=== PATIENT | male | born 1930 | race Caucasian/White ===

== ENCOUNTER 2020-04-28 11:00 | Inpatient (IN) | payer OTHER ==
[~2020-04-28] VITALS: Ht 180.3 cm; Wt 105.1 kg
[2020-04-28 11:30] LABS: BASOPHILS % (AUTO) 0.2 % (0.0-5.0); EOSINOPHILS % (AUTO) 0.3 % (0.0-8.0); HEMATOCRIT 37.8 % (42-54); LYMPHOCYTES % (AUTO) 4.4 % (21.0-51.0); MEAN CORPUSCULAR HEMOGLOBIN 30.9 pg (27.0-33.0); MEAN CORPUSCULAR HGB CONC 33.1 g/dL (32.0-36.0); MEAN CORPUSCULAR VOLUME 93.3 fL (79-99); MONOCYTES % (AUTO) 9.3 % (3.0-13.0); NEUTROPHILS % (AUTO) 85.3 % (40.0-77.0); PLATELET COUNT (AUTO) 123 K/uL (130-400); RED BLOOD CELL COUNT(AUTO) 4.05 MIL/uL (4.50-6.20); RED CELL DISTRIBUTION WIDTH 13.6 % (11.0-15.5); WHITE BLOOD COUNT (AUTO) 15.4 K/uL (4.8-10.8)
[2020-04-28 11:56] LABS: INR 1.26 (0.85-1.15); PROTHROMBIN TIME 13.3 SEC (9.6-11.6)
[2020-04-28 11:57] LABS: PARTIAL THROMBOPLASTIN TIME 33.8 SEC (26.3-35.5)
[2020-04-28 11:59] LABS: ALBUMIN 2.7 g/dL (3.5-5.0); BILIRUBIN,TOTAL 1.5 mg/dL (0.2-1.0); CREATININE 1.3 mg/dL (0.5-1.5); POTASSIUM 3.8 mmol/L (3.5-5.1); TOTAL PROTEIN, SERUM 6.3 g/dL (6.0-8.3); TROPONIN I 0.07 ng/mL (0.00-0.06)
[2020-04-28] MEDS ORDERED: LEVOFLOXACIN 500 MG/D5W 100 ML 100 ML ONE (12:34)
[2020-04-28] MEDS ORDERED: SODIUM CHLORIDE 0.9% 1000ML 1,000 ML IV ONE (12:34)
[2020-04-28] MEDS ORDERED: ACETAMINOPHEN 325 MG TAB ONE ×2 (12:34→12:38)
[2020-04-28] MEDS ORDERED: IOHEXOL-350 75 ML VIAL IV ONE (13:40)
[2020-04-28 13:50] LABS: APPEARANCE,URINE Cloudy (CLEAR); BILIRUBIN,URINE Small (NEGATIVE); COLOR,URINE Dark Yellow (YELLOW); GLUCOSE, URINE (UA) Negative (NEGATIVE); KETONES,URINE Trace mg/dL (NEGATIVE); LEUKOCYTE ESTERASE ,URINE Trace (NEGATIVE); NITRATE,URINE Negative (NEGATIVE); OCCULT BLOOD,URINE Small (NEGATIVE); PROTEIN,URINE POS 2+ mg/dL (NEGATIVE)
[2020-04-28 14:18] LABS: BACTERIA,URINE Rare /HPF (None Seen); RBC,URINE 0-1 /HPF (0-1); SQUAMOUS EPITHELIAL CELL,UR Rare /HPF (0-2); WBC,URINE 0-1 /HPF (0-1)
[2020-04-28] MEDS ORDERED: LACTULOSE 20 GM/30 ML UDCUP PO PRN (16:30)
[2020-04-28] MEDS ORDERED: ONDANSETRON HCL 4 MG/2 ML VIAL IV PRN (16:30)
[2020-04-28] MEDS ORDERED: MAG HYDROX/AL HYDROX/SIMETH ES 30 ML SUSP UDCUP PO PRN (16:30)
[2020-04-28] MEDS ORDERED: ACETAMINOPHEN-CODEINE 300/30MG TAB PO PRN ×2 (16:30)
[2020-04-28] MEDS: LACTATED RINGERS 1000ML 1,000 ML IV SCH (16:30)
[2020-04-28] MEDS ORDERED: ZOSYN 3.375GM+NS 50ML 50 ML IV SCH (16:45)
[2020-04-28] MEDS: SODIUM CHLORIDE 0.9% 1000ML 1,000 ML IV SCH (16:45)
[2020-04-28] MEDS ORDERED: PHARMACY COMMUNICATION MISC SCH (17:30)
[2020-04-28] MEDS ORDERED: VANCOMYCIN PROTOCOL PER PHARMACY IV SCH (17:45)
[2020-04-28] MEDS: ALBUTEROL SULFATE 0.083% 2.5 MG/3 ML INH IH SCH (18:15)
[2020-04-28] MEDS ORDERED: VANCOMYCIN 1.5 GM in SODIUM CHLORIDE 0.9% 250 ML IV ONE (18:30)
[2020-04-28] MEDS ORDERED: LEVOFLOXACIN 500 MG/D5W 100 ML 100 ML IV SCH (21:00)
[2020-04-28] MEDS: METRONIDAZOLE 500MG/100ML BAG 100 ML IVPB SCH (22:00)
[2020-04-28 23:00] VITALS: BP 124/68
[2020-04-29] MEDS: ALBUTEROL SULFATE 0.083% 2.5 MG/3 ML INH IH SCH (02:15)
[2020-04-29 03:00] VITALS: BP 135/75
[2020-04-29] MEDS: METRONIDAZOLE 500MG/100ML BAG 100 ML IVPB SCH ×3 (05:28→21:53)
[2020-04-29] MEDS: LACTATED RINGERS 1000ML 1,000 ML IV SCH ×3 (05:28→21:56)
[2020-04-29 05:36] LABS: BASOPHILS % (AUTO) 0.2 % (0.0-5.0); EOSINOPHILS % (AUTO) 0.2 % (0.0-8.0); HEMATOCRIT 36.9 % (42-54); LYMPHOCYTES % (AUTO) 5.1 % (21.0-51.0); MEAN CORPUSCULAR HGB CONC 32.8 g/dL (32.0-36.0); MEAN CORPUSCULAR VOLUME 94.6 fL (79-99); MONOCYTES % (AUTO) 11.3 % (3.0-13.0); NEUTROPHILS % (AUTO) 82.4 % (40.0-77.0); PLATELET COUNT (AUTO) 123 K/uL (130-400); RED CELL DISTRIBUTION WIDTH 13.7 % (11.0-15.5); WHITE BLOOD COUNT (AUTO) 11.9 K/uL (4.8-10.8)
[2020-04-29] MEDS: SODIUM CHLORIDE 0.9% 1000ML 1,000 ML IV SCH (06:05)
[2020-04-29 06:22] LABS: CREATININE 1.2 mg/dL (0.5-1.5); POTASSIUM 3.7 mmol/L (3.5-5.1)
[2020-04-29] MEDS: ALBUTEROL INHALER 90MCG/INH IH SCH ×3 (06:58→18:26)
[2020-04-29] MEDS: VANCOMYCIN 500MG+NS 100ML 100 ML IV SCH ×2 (07:00→18:28)
[2020-04-29 08:00] VITALS: BP 114/78
[2020-04-29] MEDS ORDERED: ENOXAPARIN SODIUM 30 MG/0.3 ML SQ SCH (09:00)
[2020-04-29] MEDS: LOSARTAN 50 MG TABLET PO SCH (09:23)
[2020-04-29] MEDS: DILTIAZEM HCL 120 MG CAP.SR.24H PO SCH (09:24)
[2020-04-29] MEDS ORDERED: APIX5TAB PO (10:34)
[2020-04-29] MEDS ORDERED: ATOR40TA71 PO (10:35)
[2020-04-29] MEDS ORDERED: DIGO0.12 PO (10:36)
[2020-04-29] MEDS ORDERED: VALS40TA11 PO (10:36)
[2020-04-29] MEDS ORDERED: GUAI200T5 PO (10:38)
[2020-04-29] MEDS ORDERED: BUPR100T13 PO (10:40)
[2020-04-29] MEDS ORDERED: DILT-19 PO (10:41)
[2020-04-29] MEDS ORDERED: MAGN250T39 PO (10:47)
[2020-04-29 11:24] VITALS: BP 122/65
[2020-04-29] MEDS ORDERED: TIOT18CA3 IH (12:34)
[2020-04-29] MEDS ORDERED: BUDE10.2 IH (12:35)
[2020-04-29] MEDS ORDERED: IOHEXOL-350 75 ML VIAL IV ONE (15:15)
[2020-04-29 16:00] VITALS: BP 109/55
[2020-04-29] MEDS ORDERED: MORPHINE SULFATE 4 MG/1ML SYG IV PRN (19:45)
[2020-04-29] MEDS ORDERED: MORPHINE SULFATE 2 MG/ML 1ML SYG IVP PRN (19:45)
[2020-04-29 20:12] VITALS: BP 128/92
[2020-04-29] MEDS: LEVOFLOXACIN 250 MG/D5W 50ML 50 ML IVPB SCH (21:53)
[2020-04-29] MEDS: APIXABAN 5 MG TABLET PO SCH (21:53)
[2020-04-30] VITALS (7 sets, daily range): BP systolic 112–155; BP diastolic 57–86
[2020-04-30] MEDS: METRONIDAZOLE 500MG/100ML BAG 100 ML IVPB SCH ×3 (05:55→23:55)
[2020-04-30] MEDS: VANCOMYCIN 500MG+NS 100ML 100 ML IV SCH (05:56)
[2020-04-30] MEDS ORDERED: VANCOMYCIN 1GM+NS 250ML 250 ML IV SCH (08:00)
[2020-04-30] MEDS ORDERED: COMPOUND IV REFRIGERATED 1 EACH IVSOLN MISC PRN (08:00)
[2020-04-30] MEDS: LACTATED RINGERS 1000ML 1,000 ML IV SCH ×2 (08:30→23:56)
[2020-04-30] MEDS: LOSARTAN 50 MG TABLET PO SCH (08:46)
[2020-04-30] MEDS: DILTIAZEM HCL 120 MG CAP.SR.24H PO SCH (08:46)
[2020-04-30] MEDS: APIXABAN 5 MG TABLET PO SCH (08:47)
[2020-04-30] MEDS ORDERED: VANCOMYCIN 500MG+NS 100ML 100 ML IV SCH (12:00)
[2020-04-30 12:53] LABS: BASOPHILS % (AUTO) 0.2 % (0.0-5.0); EOSINOPHILS % (AUTO) 0.3 % (0.0-8.0); HEMATOCRIT 37.7 % (42-54); LYMPHOCYTES % (AUTO) 4.2 % (21.0-51.0); MEAN CORPUSCULAR HEMOGLOBIN 31.6 pg (27.0-33.0); MEAN CORPUSCULAR HGB CONC 32.9 g/dL (32.0-36.0); MEAN CORPUSCULAR VOLUME 95.9 fL (79-99); NEUTROPHILS % (AUTO) 84.7 % (40.0-77.0); PLATELET COUNT (AUTO) 148 K/uL (130-400); RED BLOOD CELL COUNT(AUTO) 3.93 MIL/uL (4.50-6.20); WHITE BLOOD COUNT (AUTO) 13.5 K/uL (4.8-10.8)
[2020-04-30 13:03] LABS: CREATININE 1.2 mg/dL (0.5-1.5); POTASSIUM 3.6 mmol/L (3.5-5.1)
[2020-04-30] MEDS ORDERED: VANCOMYCIN 750MG + NS 250 ML IV SCH ×2 (21:00)
[2020-05-01] MEDS: ALBUTEROL INHALER 90MCG/INH IH SCH (00:27)
[2020-05-01] MEDS: LEVOFLOXACIN 250 MG/D5W 50ML 50 ML IVPB SCH (02:45)
[2020-05-01] MEDS: APIXABAN 5 MG TABLET PO SCH ×3 (02:49→21:43)
[2020-05-01] MEDS: GUAIFENESIN-DM 200/20 MG 10 ML PO PRN ×2 (02:49→11:18)
[2020-05-01 03:13] VITALS: BP 119/61
[2020-05-01] MEDS ORDERED: PHARMACY COMMUNICATION MISC SCH (05:00)
[2020-05-01 05:25] LABS: BASOPHILS % (AUTO) 0.4 % (0.0-5.0); EOSINOPHILS % (AUTO) 0.3 % (0.0-8.0); HEMATOCRIT 35.8 % (42-54); MEAN CORPUSCULAR HEMOGLOBIN 30.5 pg (27.0-33.0); MEAN CORPUSCULAR HGB CONC 33.2 g/dL (32.0-36.0); MEAN CORPUSCULAR VOLUME 91.8 fL (79-99); MONOCYTES % (AUTO) 10.2 % (3.0-13.0); NEUTROPHILS % (AUTO) 83.4 % (40.0-77.0); PLATELET COUNT (AUTO) 148 K/uL (130-400); RED CELL DISTRIBUTION WIDTH 13.8 % (11.0-15.5); WHITE BLOOD COUNT (AUTO) 12.5 K/uL (4.8-10.8)
[2020-05-01 05:46] LABS: CREATININE 1.1 mg/dL (0.5-1.5); POTASSIUM 3.4 mmol/L (3.5-5.1)
[2020-05-01 08:00] VITALS: BP 116/54
[2020-05-01] MEDS: LOSARTAN 50 MG TABLET PO SCH (09:55)
[2020-05-01] MEDS: DILTIAZEM HCL 120 MG CAP.SR.24H PO SCH (09:57)
[2020-05-01] MEDS: ALBUTEROL SULFATE 0.083% 2.5 MG/3 ML INH IH SCH ×3 (11:03→23:58)
[2020-05-01 12:00] VITALS: BP 123/70
[2020-05-01] MEDS: CEFTRIAXONE SODIUM 1 GM IVP SCH (12:52)
[2020-05-01] MEDS: LACTATED RINGERS 1000ML 1,000 ML IV SCH ×2 (14:59→23:51)
[2020-05-01 16:00] VITALS: BP 132/71
[2020-05-01] MEDS: METRONIDAZOLE 500MG/100ML BAG 100 ML IVPB SCH ×2 (16:27→23:44)
[2020-05-01 23:20] VITALS: BP 144/88
[2020-05-01] MEDS: ACETAMINOPHEN 325 MG TAB PO PRN (23:37)
[2020-05-02] MEDS: LACTATED RINGERS 1000ML 1,000 ML IV SCH ×3 (00:30→20:30)
[2020-05-02 04:00] VITALS: BP 147/80
[2020-05-02] MEDS: ACETAMINOPHEN 325 MG TAB PO PRN (06:10)
[2020-05-02] MEDS: ALBUTEROL SULFATE 0.083% 2.5 MG/3 ML INH IH SCH ×3 (06:42→18:55)
[2020-05-02 08:00] VITALS: BP 147/77
[2020-05-02] MEDS: DILTIAZEM HCL 120 MG CAP.SR.24H PO SCH (09:31)
[2020-05-02] MEDS: LOSARTAN 50 MG TABLET PO SCH (09:31)
[2020-05-02] MEDS: METRONIDAZOLE 500MG/100ML BAG 100 ML IVPB SCH ×3 (09:31→16:56)
[2020-05-02] MEDS: APIXABAN 5 MG TABLET PO SCH ×2 (09:31→20:40)
[2020-05-02] MEDS: CEFTRIAXONE SODIUM 1 GM IVP SCH (11:29)
[2020-05-02 11:34] VITALS: BP 154/63
[2020-05-02] MEDS ORDERED: FENTANYL CITRATE PF 50 MCG/1 ML 2ML VIAL IVP SCH (12:00)
[2020-05-02] MEDS ORDERED: MIDAZOLAM HCL 1 MG/ML 2ML VIAL IVP SCH (12:00)
[2020-05-02] MEDS ORDERED: LIDOCAINE HCL 2% VISCOUS 15 ML UDCUP ONE (14:44)
[2020-05-02 16:00] VITALS: BP 128/78
[2020-05-02 19:15] VITALS: BP 127/88
[2020-05-02] MEDS ORDERED: HALOPERIDOL LACTATE 5 MG/ML VIAL IM SCH (22:50)
[2020-05-02 23:12] VITALS: BP 132/96
[2020-05-03] MEDS: ALBUTEROL SULFATE 0.083% 2.5 MG/3 ML INH IH SCH ×3 (00:11→10:44)
[2020-05-03] MEDS: METRONIDAZOLE 500MG/100ML BAG 100 ML IVPB SCH ×2 (00:33→08:25)
[2020-05-03] MEDS: ACETAMINOPHEN 325 MG TAB PO PRN ×2 (00:46→04:51)
[2020-05-03 04:04] VITALS: BP 135/78
[2020-05-03] MEDS: LACTATED RINGERS 1000ML 1,000 ML IV SCH ×2 (04:27→16:08)
[2020-05-03 08:00] VITALS: BP 123/75
[2020-05-03 08:18] LABS: BASOPHILS % (AUTO) 0.3 % (0.0-5.0); EOSINOPHILS % (AUTO) 0.6 % (0.0-8.0); HEMATOCRIT 33.5 % (42-54); LYMPHOCYTES % (AUTO) 7.7 % (21.0-51.0); MEAN CORPUSCULAR HEMOGLOBIN 31.5 pg (27.0-33.0); MEAN CORPUSCULAR VOLUME 92.5 fL (79-99); NEUTROPHILS % (AUTO) 82.5 % (40.0-77.0); PLATELET COUNT (AUTO) 208 K/uL (130-400); RED BLOOD CELL COUNT(AUTO) 3.62 MIL/uL (4.50-6.20); RED CELL DISTRIBUTION WIDTH 14.2 % (11.0-15.5)
[2020-05-03] MEDS: APIXABAN 5 MG TABLET PO SCH (08:24)
[2020-05-03] MEDS: LOSARTAN 50 MG TABLET PO SCH (08:24)
[2020-05-03] MEDS: DILTIAZEM HCL 120 MG CAP.SR.24H PO SCH (08:25)
[2020-05-03 08:32] LABS: ALBUMIN 2.1 g/dL (3.5-5.0); POTASSIUM 3.5 mmol/L (3.5-5.1); TOTAL PROTEIN, SERUM 5.4 g/dL (6.0-8.3)
[2020-05-03] MEDS: CEFTRIAXONE SODIUM 1 GM IVP SCH (11:21)
[2020-05-03 11:40] VITALS: BP 131/67
[2020-05-03 11:57] LABS: CRP QUANTITATIVE 130.2 mg/L (0.00-9.0)
== END 2020-05-03 17:30 | disposition home or self-care (01) | DRG 314 ==
LOC: EDH 11:00 → EDHIP 16:24 → UNDOADMOB 16:24 → OBSVTOIN 22:30 → 4DH 22:30 → EDHIP 22:31 → 4DH 22:32 → 4CH 04-29 20:05
PROVIDERS: ADMIT Hospitalist; ATTEND Hospitalist
PROC: B246ZZ4 Ultrasonography of Right and Left Heart, Transesophageal (ICD-10-PCS; principal; 2020-05-02)
DX: T82.7XXA Infection and inflammatory reaction due to other cardiac and vascular devices, implants and grafts, initial encounter (principal); A41.2 Sepsis due to unspecified staphylococcus; M62.82 Rhabdomyolysis; I50.9 Heart failure, unspecified; E66.9 Obesity, unspecified; D64.9 Anemia, unspecified; M54.5 Low back pain; J44.9 Chronic obstructive pulmonary disease, unspecified; I48.91 Unspecified atrial fibrillation; H40.9 Unspecified glaucoma; H91.90 Unspecified hearing loss, unspecified ear; I11.0 Hypertensive heart disease with heart failure; R53.81 Other malaise; I07.1 Rheumatic tricuspid insufficiency; M47.816 Spondylosis without myelopathy or radiculopathy, lumbar region; M47.814 Spondylosis without myelopathy or radiculopathy, thoracic region; Y83.8 Other surgical procedures as the cause of abnormal reaction of the patient, or of later complication, without mention of misadventure at the time of the procedure; Z68.32 Body mass index [BMI] 32.0-32.9, adult; Y92.89 Other specified places as the place of occurrence of the external cause; Z95.0 Presence of cardiac pacemaker; Z87.891 Personal history of nicotine dependence; Z85.820 Personal history of malignant melanoma of skin; Z88.0 Allergy status to penicillin; Z88.8 Allergy status to other drugs, medicaments and biological substances; Z91.030 Bee allergy status; Z20.828 Contact with and (suspected) exposure to other viral communicable diseases
CPT/HCPCS: 36415; 71045; 72130; 72133; 73030; 74177; 76705; 80048; 80053; 80202; 81001; 82550; 83605; 83874; 84145; 84484; 85025; 85610; 85651; 85730; 86140; 86900; 86901; 87040; 87077; 87088; 87186; 87426; 87804; 93005; 93306; 93313; 94640; 94664; 97039; 99152; 99153; G0378; J0696; J1630; J1650; J1956; J2250; J2270; J3010; J3370; J3490; J7030; J7050; J7120; Q9967; U0003

== ENCOUNTER 2020-05-06 10:26 | Emergency (ER) | payer OTHER ==
[~2020-05-06 10:26] MED LIST: APIX5TAB PO; ATOR40TA71 PO; BUDE10.2 IH; BUPR100T13 PO; DIGO0.12 PO; DILT-19 PO; GUAI200T5 PO; MAGN250T39 PO; TIOT18CA3 IH; VALS40TA11 PO
[2020-05-06 11:24] LABS: BASOPHILS % (AUTO) 0.3 % (0.0-5.0); EOSINOPHILS % (AUTO) 0.3 % (0.0-8.0); HEMATOCRIT 35.5 % (42-54); LYMPHOCYTES % (AUTO) 5.8 % (21.0-51.0); MEAN CORPUSCULAR HEMOGLOBIN 30.9 pg (27.0-33.0); MEAN CORPUSCULAR VOLUME 93.7 fL (79-99); PLATELET COUNT (AUTO) 297 K/uL (130-400); RED BLOOD CELL COUNT(AUTO) 3.79 MIL/uL (4.50-6.20); RED CELL DISTRIBUTION WIDTH 14.1 % (11.0-15.5); WHITE BLOOD COUNT (AUTO) 12.2 K/uL (4.8-10.8)
[2020-05-06] MEDS ORDERED: FUROSEMIDE 40MG VIAL ONE (11:25)
[2020-05-06 11:43] LABS: INR 1.39 (0.85-1.15); PROTHROMBIN TIME 14.4 SEC (9.6-11.6)
[2020-05-06 11:45] LABS: PARTIAL THROMBOPLASTIN TIME 29.9 SEC (26.3-35.5)
[2020-05-06 12:39] LABS: ALBUMIN 2.5 g/dL (3.5-5.0); BILIRUBIN,TOTAL 0.7 mg/dL (0.2-1.0); TOTAL PROTEIN, SERUM 6.2 g/dL (6.0-8.3)
[2020-05-06] MEDS ORDERED: DEXAMETHASONE SOD PHOSPHATE 4 MG/ML 1ML VIAL ONE (13:03)
== END 2020-05-06 13:31 | disposition home or self-care (01) ==
LOC: EDH 10:26
DX: R60.0 Localized edema (principal); M54.5 Low back pain; E87.70 Fluid overload, unspecified; A41.89 Other specified sepsis; J44.9 Chronic obstructive pulmonary disease, unspecified; I48.91 Unspecified atrial fibrillation; I50.9 Heart failure, unspecified; Z87.891 Personal history of nicotine dependence; Z88.0 Allergy status to penicillin; Z88.2 Allergy status to sulfonamides; Z91.030 Bee allergy status
CPT/HCPCS: 36415; 80053; 85025; 85610; 85730; 87040; 93005; 93970; 96372; 96374; 99285; J1100; J1940

== ENCOUNTER 2020-05-25 18:09 | Inpatient (IN) | payer OTHER ==
[~2020-05-25] VITALS: Ht 177.8 cm; Wt 91.4 kg
[2020-05-25 19:42] LABS: BASOPHILS % (AUTO) 0.3 % (0.0-5.0); EOSINOPHILS % (AUTO) 1.6 % (0.0-8.0); HEMATOCRIT 34.5 % (42-54); LYMPHOCYTES % (AUTO) 11.2 % (21.0-51.0); MEAN CORPUSCULAR HEMOGLOBIN 30.4 pg (27.0-33.0); MEAN CORPUSCULAR HGB CONC 32.8 g/dL (32.0-36.0); MEAN CORPUSCULAR VOLUME 92.7 fL (79-99); MONOCYTES % (AUTO) 9.7 % (3.0-13.0); NEUTROPHILS % (AUTO) 76.7 % (40.0-77.0); PLATELET COUNT (AUTO) 319 K/uL (130-400); RED BLOOD CELL COUNT(AUTO) 3.72 MIL/uL (4.50-6.20); RED CELL DISTRIBUTION WIDTH 13.4 % (11.0-15.5)
[2020-05-25 19:59] LABS: INR 1.25 (0.85-1.15); PROTHROMBIN TIME 13.1 SEC (9.6-11.6)
[2020-05-25 20:01] LABS: PARTIAL THROMBOPLASTIN TIME 29.9 SEC (26.3-35.5)
[2020-05-25 20:02] LABS: ALBUMIN 2.5 g/dL (3.5-5.0); BILIRUBIN,TOTAL 0.5 mg/dL (0.2-1.0); POTASSIUM 3.9 mmol/L (3.5-5.1); TOTAL PROTEIN, SERUM 6.7 g/dL (6.0-8.3)
[2020-05-25] MEDS ORDERED: CEFTRIAXONE 1G VIAL ONE (20:04)
[2020-05-25] MEDS ORDERED: LEVOFLOXACIN 500 MG/D5W 100 ML 100 ML ONE (20:04)
[2020-05-25] MEDS ORDERED: TRAMADOL HCL 50 MG TABLET ONE (21:07)
[2020-05-26 02:12] LABS: APPEARANCE,URINE Cloudy (CLEAR); BILIRUBIN,URINE Negative (NEGATIVE); COLOR,URINE Yellow (YELLOW); GLUCOSE, URINE (UA) Negative (NEGATIVE); KETONES,URINE Trace mg/dL (NEGATIVE); LEUKOCYTE ESTERASE ,URINE Trace (NEGATIVE); NITRATE,URINE Negative (NEGATIVE); OCCULT BLOOD,URINE Negative (NEGATIVE); PH,URINE 7.5 (5.0-8.0); PROTEIN,URINE Negative (NEGATIVE)
[2020-05-26] MEDS ORDERED: HYDROMORPHONE 2 MG VIAL (2MG/ML) IVP ONE (02:15)
[2020-05-26] MEDS ORDERED: ACETAMINOPHEN 325 MG TAB PO PRN ×2 (02:15)
[2020-05-26] MEDS ORDERED: ONDANSETRON 4MG INJ IV PRN (02:15)
[2020-05-26] MEDS ORDERED: HYDROMORPHONE 1 MG INJ ONE (02:32)
[2020-05-26] MEDS ORDERED: ONDANSETRON 4MG INJ ONE (02:32)
[2020-05-26 03:08] LABS: AMORPHOUS SEDIMENT,UR Many /LPF (None Seen); BACTERIA,URINE Rare /HPF (None Seen); RBC,URINE 0-1 /HPF (0-1); WBC,URINE 0-1 /HPF (0-1)
[2020-05-26 05:35] VITALS: BP 141/72
[2020-05-26 08:18] VITALS: BP 142/78
[2020-05-26] MEDS: BACLOFEN 10 MG TABLET PO SCH ×3 (08:57→20:41)
[2020-05-26] MEDS: LUBIPROSTONE 24 MCG CAP PO SCH ×2 (08:57→16:46)
[2020-05-26] MEDS: DILTIAZEM 120MG SR CAP PO SCH (08:58)
[2020-05-26] MEDS: DEXAMETHASONE 4 MG TAB PO SCH ×2 (08:59→20:43)
[2020-05-26] MEDS: LOSARTAN 50 MG TABLET PO SCH (08:59)
[2020-05-26] MEDS: FUROSEMIDE 20 MG TABLET PO SCH (09:00)
[2020-05-26] MEDS: APIXABAN 5 MG TABLET PO SCH ×2 (09:00→20:40)
[2020-05-26] MEDS ORDERED: ENOXAPARIN SODIUM 40 MG/0.4 ML SYRINGE SQ SCH (09:00)
[2020-05-26] MEDS: DIGOXIN 125 MCG TABLET PO SCH (09:00)
[2020-05-26] MEDS: GABAPENTIN 100 MG CAPSULE PO SCH ×3 (09:01→20:46)
[2020-05-26] MEDS: LIDOCAINE 5% TOPICAL PATCH TP SCH (09:01)
[2020-05-26] MEDS: FAMOTIDINE 20MG TAB PO SCH ×2 (09:01→20:40)
[2020-05-26] MEDS ORDERED: HYDROMORPHONE 1 MG INJ IVP PRN (11:15)
[2020-05-26 11:47] VITALS: BP 123/82
[2020-05-26 17:00] VITALS: BP 109/51
[2020-05-26 19:51] VITALS: BP 133/80
[2020-05-26] MEDS: ATORVASTATIN 20 MG TABLET PO SCH (20:43)
[2020-05-26 23:53] VITALS: BP 123/74
[2020-05-27 04:00] VITALS: BP 117/74
[2020-05-27 04:42] LABS: HEMATOCRIT 34.3 % (42-54); MEAN CORPUSCULAR HEMOGLOBIN 29.7 pg (27.0-33.0); MEAN CORPUSCULAR HGB CONC 32.7 g/dL (32.0-36.0); RED BLOOD CELL COUNT(AUTO) 3.77 MIL/uL (4.50-6.20); RED CELL DISTRIBUTION WIDTH 13.2 % (11.0-15.5); WHITE BLOOD COUNT (AUTO) 11.4 K/uL (4.8-10.8)
[2020-05-27 05:03] LABS: ALBUMIN 2.2 g/dL (3.5-5.0); BILIRUBIN,TOTAL 0.4 mg/dL (0.2-1.0); CREATININE 0.9 mg/dL (0.5-1.5); POTASSIUM 4.3 mmol/L (3.5-5.1); TOTAL PROTEIN, SERUM 6.2 g/dL (6.0-8.3)
[2020-05-27] MEDS: CEFTRIAXONE 1G VIAL IVP SCH (06:03)
[2020-05-27 08:00] VITALS: BP 119/69
[2020-05-27] MEDS: DILTIAZEM 120MG SR CAP PO SCH (09:05)
[2020-05-27] MEDS: APIXABAN 5 MG TABLET PO SCH ×2 (09:06→21:15)
[2020-05-27] MEDS: LUBIPROSTONE 24 MCG CAP PO SCH ×2 (09:06→17:44)
[2020-05-27] MEDS: GABAPENTIN 100 MG CAPSULE PO SCH ×3 (09:06→21:15)
[2020-05-27] MEDS: DEXAMETHASONE 4 MG TAB PO SCH ×2 (09:06→21:14)
[2020-05-27] MEDS: BACLOFEN 10 MG TABLET PO SCH ×3 (09:06→21:16)
[2020-05-27] MEDS: FUROSEMIDE 20 MG TABLET PO SCH (09:07)
[2020-05-27] MEDS: LOSARTAN 50 MG TABLET PO SCH (09:07)
[2020-05-27] MEDS: DIGOXIN 125 MCG TABLET PO SCH (09:08)
[2020-05-27] MEDS: FAMOTIDINE 20MG TAB PO SCH ×2 (09:08→21:14)
[2020-05-27] MEDS: LIDOCAINE 5% TOPICAL PATCH TP SCH (09:08)
[2020-05-27 12:00] VITALS: BP 128/72
[2020-05-27 16:00] VITALS: BP 121/69
[2020-05-27 19:45] VITALS: BP 110/64
[2020-05-27] MEDS: ATORVASTATIN 20 MG TABLET PO SCH (21:15)
[2020-05-27 23:20] VITALS: BP 133/84
[2020-05-28 03:20] VITALS: BP 138/69
[2020-05-28] MEDS ORDERED: HYDROMORPHONE 0.5 MG SYG (0.5MG/0.5ML) ONE (04:00)
[2020-05-28] MEDS: CEFTRIAXONE 1G VIAL IVP SCH (05:40)
[2020-05-28 06:13] LABS: HEMATOCRIT 34.3 % (42-54); MEAN CORPUSCULAR HEMOGLOBIN 29.2 pg (27.0-33.0); MEAN CORPUSCULAR HGB CONC 32.1 g/dL (32.0-36.0); RED BLOOD CELL COUNT(AUTO) 3.77 MIL/uL (4.50-6.20); RED CELL DISTRIBUTION WIDTH 13.2 % (11.0-15.5); WHITE BLOOD COUNT (AUTO) 14.1 K/uL (4.8-10.8)
[2020-05-28 06:37] LABS: ALBUMIN 2.3 g/dL (3.5-5.0); BILIRUBIN,TOTAL 0.3 mg/dL (0.2-1.0); CREATININE 0.9 mg/dL (0.5-1.5); POTASSIUM 4.3 mmol/L (3.5-5.1); TOTAL PROTEIN, SERUM 6.3 g/dL (6.0-8.3)
[2020-05-28 08:00] VITALS: BP 133/76
[2020-05-28] MEDS: DILTIAZEM 120MG SR CAP PO SCH (10:27)
[2020-05-28] MEDS: GABAPENTIN 100 MG CAPSULE PO SCH ×3 (10:27→18:09)
[2020-05-28] MEDS: BACLOFEN 10 MG TABLET PO SCH ×3 (10:28→18:09)
[2020-05-28] MEDS: DEXAMETHASONE 4 MG TAB PO SCH (10:29)
[2020-05-28] MEDS: LUBIPROSTONE 24 MCG CAP PO SCH ×2 (10:29→18:05)
[2020-05-28] MEDS: APIXABAN 5 MG TABLET PO SCH (10:29)
[2020-05-28] MEDS: DIGOXIN 125 MCG TABLET PO SCH (10:29)
[2020-05-28] MEDS: LOSARTAN 50 MG TABLET PO SCH (10:30)
[2020-05-28] MEDS: FAMOTIDINE 20MG TAB PO SCH (10:30)
[2020-05-28] MEDS: LIDOCAINE 5% TOPICAL PATCH TP SCH (10:31)
[2020-05-28] MEDS: FUROSEMIDE 20 MG TABLET PO SCH (10:33)
[2020-05-28 11:45] VITALS: BP 110/59
[2020-05-28] MEDS ORDERED: BACL5TAB PO (13:22)
[2020-05-28] MEDS ORDERED: FURO20TA6 PO (13:22)
[2020-05-28] MEDS ORDERED: GABA-529 PO (13:22)
[2020-05-28 16:00] VITALS: BP 117/55
== END 2020-05-28 18:30 | disposition home or self-care (01) | DRG 551 ==
LOC: EDH 18:09 → EDHIP 05-26 02:05 → 3BH 05-26 05:06
PROVIDERS: ADMIT Internal Medicine; ATTEND Internal Medicine
DX: M54.5 Low back pain (principal); I50.33 Acute on chronic diastolic (congestive) heart failure; J18.9 Pneumonia, unspecified organism; I42.9 Cardiomyopathy, unspecified; L03.116 Cellulitis of left lower limb; J44.0 Chronic obstructive pulmonary disease with (acute) lower respiratory infection; M47.814 Spondylosis without myelopathy or radiculopathy, thoracic region; K59.03 Drug induced constipation; I11.0 Hypertensive heart disease with heart failure; N28.1 Cyst of kidney, acquired; N28.89 Other specified disorders of kidney and ureter; E66.9 Obesity, unspecified; G89.29 Other chronic pain; I48.91 Unspecified atrial fibrillation; K57.30 Diverticulosis of large intestine without perforation or abscess without bleeding; R53.81 Other malaise; T40.2X5A Adverse effect of other opioids, initial encounter; K80.20 Calculus of gallbladder without cholecystitis without obstruction; Z85.820 Personal history of malignant melanoma of skin; Z87.891 Personal history of nicotine dependence; Z95.810 Presence of automatic (implantable) cardiac defibrillator; Z88.0 Allergy status to penicillin; Z88.8 Allergy status to other drugs, medicaments and biological substances; Z91.030 Bee allergy status; Z68.28 Body mass index [BMI] 28.0-28.9, adult; Y92.89 Other specified places as the place of occurrence of the external cause
CPT/HCPCS: 36415; 71045; 72128; 72131; 74176; 76770; 80053; 81001; 82550; 83605; 83880; 84145; 84484; 85025; 85027; 85610; 85651; 85730; 87040; 93005; 97039; G0378; J0696; J1170; J1956; J2405; J8540